=== PATIENT | male | born 1950 | race Caucasian/White ===

== ENCOUNTER → 2023-08-14 08:10 | Outpatient (POV) | payer MEDICARE, SELFPAY ==
[2023-08-14 08:48] VITALS: BP 136/89; PULSE 64; RESP 18; O2SAT 96; BMI 26.6
--- NOTE | 2023-08-14 09:47 | A.OFFVIS_ITS ---
HPI Data of Consult Patient: new to practice Consult date: 08/14/23 Requesting Physician: Yessi Benítez APRN Consult Narrative Reason for consult: Low back pain, leg pain History of present illness: Mr. Nixon is a 73 year old male who presents today as a new patient. He is a referral from the [facility]. Patient was being seen at this office for degenerative disc disease of lumbar spine with lumbar radiculopathy symptoms. Patient rates his pain today a 2 out of 10 however states right now it is doing well and he has not been up moving around as much. Patient states that when he does increase his activity the symptoms do get worse as the day goes on. Patient states he cannot tolerate prolonged walking due to his worsening symptoms. He states that he frequently has to stop and take multiple breaks. Patient does also state that he frequently feels like he is having to lean over and that his posture is poor. He states that he has had this pain going on for longer than 2 years unrelated to any specific trauma or injury. 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 He does describe this as a dull aching sensation with numbness and tingling into his legs. Patient states he is perfectly fine when he is sitting however the issue is when he gets up and ambulates. Patient has tried [id number] Tylenol and ibuprofen along with heat and ice and topicals with minimal relief. Patient did just complete 7 to 8 weeks of physical therapy back in March/April 2023 with no additional improvement. Patient does continue to do at home exercising and stretching however it is not making any difference. Patient did recently have a lumbar epidural however he states that he felt good initially coming up off the table but the effects were very short-term if lasting even more than the day or so. Patient states he has had recent imaging updates. He also states that he has been rather frustrated with trying to get in at the [place] location and that it took a while to even get to be seen and then has taken longer to get into rev iew over the epidural. His Harley has been reviewed and is appropriate. CC: Yessi Benítez APRN [facility] Disclaimer: The information contained in this section may have been updated after the patient was seen, as this information can be updated by other users. Medical History (Updated 08/14/23 @ 10:03 by Yessi Benítez APRN) HLD (hyperlipidemia) HTN (hypertension) Kidney stones Surgical History (Updated 08/14/23 @ 08:51 by Summer Arce RN) Surgical history unknown Family History (Updated 08/14/23 @ 08:49 by Summer Arce RN) Other Unknown family medical history Social History (Updated 08/14/23 @ 08:53 by Summer Arce RN) Smoking Status: Current every day smoker alcohol intake: never current occupational status: retired Travel in the last 8 weeks: None Review of Systems Review of Systems Review of systems:: pertinent systems reviewed and negative unless documented below Review of systems (narrative): Review of Systems: General: No recent weight changes, no fever, no sleep disturbances Respiratory: No cough, no shortness of air, no recurring pulmonary infections Cardiovascular/peripheral vascular: No chest pain, no palpitations, no edema, no shortness of breath Gastrointestinal: No new onset incontinence, normal bowel movements reported Genitourinary: No new onset incontinence Musculoskeletal: Low back pain, bilateral leg pain Psychiatric: [Normal mood/affect] Neurological: [Denies weakness in extremities], [denies balance issues] Meds Home Medications and Allergies Home Medications Medication Instructions Recorded Confirmed Type atorvastatin 10 mg tablet 10 mg PO DAILY Cholesterol 08/14/23 08/14/23 History lithium carbonate 450 mg 450 mg PO DAILY . 08/14/23 08/14/23 History tablet,extended release propranolol 40 mg tablet 40 mg PO BID BLOOD PRESSURE 08/14/23 08/14/23 History New Prescriptions to Start Prescriptions: Allergies Allergy/AdvReac Type Severity Reaction Status Date / Time No Known Allergies Allergy Verified 08/14/23 09:11 Objective Vital signs: Pulse Resp BP Pulse Ox O2 Del Method 64 18 136/89 96 Room Air 08/14/23 08:48 08/14/23 08:48 08/14/23 08:48 08/14/23 08:48 08/14/23 08:48 Narrative: Physical Exam: General: Alert and oriented x3, no acute distress, pleasant and cooperative Lungs: Respirations even and unlabored, symmetrical chest expansion Eyes: PERRL Musculoskeletal: Flexion and extension of lumbar [spine] somewhat guarded secondary to pain, [antalgic gait noted] positive shopping cart sign Neurological: Speech clear, no gross sensory deficit Additional findings Additional findings: MRI lumbar spine without contrast 01/21/2023 Findings: Benign 3.3 cm cyst lower pole left kidney. Paraspinal soft tissues are otherwise grossly unremarkable. There is prominent loss of the lumbar lordosis. Marrow signal generally age-appropriate. Distal cord and conus medullaris have a grossly normal appearance with the tip of the conus at the level of L1. T11-12: Tiny right paracentral disc protrusion without significant spinal stenosis foramina patent T12-L1: Minimal disc bulge without spinal stenosis. Foramen patent L1-2: Moderate degenerative narrowing of the disc with mild circumferential bulge. Nominal canal narrowing without spinal stenosis L2-3: Advanced degenerative narrowing of the disc with desiccation. Moderate circumferential disc bulge flattening the thecal sac. Mild hypertrophic ligament and facet changes. Mild spinal stenosis to 9 mm. Mild bilateral foraminal stenosis bilateral bulging disc. L3-4: Mild degenerative narrowing of the disc with desiccation mild circumferential disc bulge extending slightly above and below the level of the disc space. Mild hypertrophic ligament and facet changes slightly contouring the thecal sac. Trace effusion of the facet joints without synovial cyst. Mild spinal stenosis to 9 mm. Mild bilateral foraminal stenosis L4-L5: Degenerative narrowing of the disc with desiccation. Moderate circumferential disc bulge partially overlaid by endplate spur. Mild to moderate hypertrophic ligament and facet changes contouring the thecal sac. These factors combined to produce mild spinal stenosis to 8 mm. Mild left foraminal stenosis L5-S1: Severe degeneration of the disc with complete loss of disc height. There is a grade 1 retrolisthesis of L2-5. Prominent type II degenerative endplate changes with circumferential endplate spurring. Moderate hypertrophic ligament and facet changes. Factors combined to produce mild spinal stenosis. Disc margin approximates the S1 nerve roots without displacement. Severe bilateral foraminal stenosis by endplate osteophyte/disc complex Assessment and Plan *Assessment and plan (1) Degenerative disc disease, lumbar: Status: Acute Category: Medical Code(s): M51.36 - Other intervertebral disc degeneration, lumbar region (2) Lumbar radiculopathy: Status: Acute Category: Medical Code(s): M54.16 - Radiculopathy, lumbar region (3) Spinal stenosis, lumbar region with neurogenic claudication: Status: Acute Category: Medical Code(s): M48.062 - Spinal stenosis, lumbar region with neurogenic claudication (4) Chronic pain syndrome: Status: Acute Category: Medical Code(s): G89.4 - Chronic pain syndrome Plan Patient is experiencing significant pain in his overall low back and legs with decreased ability to ambulate. Patient had limited range of motion of his lumbar spine along with a positive shopping cart sign during today's visit with symptoms consistent of neurogenic claudication. I have discussed with the patient that he may be a beneficial candidate for a minimally invasive lumbar decompression. Risk and benefits were discussed with the patient and educational handouts were given to him at today's visit. Patient would like to proceed forward with this plan of care. Patient has tried and failed conservative therapy such as oral medication, heat and ice, topicals, physical therapy, at home stretching exercise for longer than 6 weeks. I have counseled patient that we will first order a lumbar epidural with epidurogram to see if he is a beneficial candidate of the mild procedure. Patient is agreeable to this plan of care. Patient is not on any blood thinners. Patient will be scheduled for lumbar epidural with epidurogram L4-L5. Patient has been instructed to contact the clinic with any concerns before the next appointment. Dr. Collado has reviewed this note and agrees with this plan of care. This note was dictated using voice recognition software and make contain errors or omissions.
== END ==
LOC: SC.PAIN 08:12
PROVIDERS: Visit Provider Nurse Practitioner Family
DX: M48.062 Spinal stenosis, lumbar region with neurogenic claudication; G89.4 Chronic pain syndrome; M51.16 Intervertebral disc disorders with radiculopathy, lumbar region
CPT/HCPCS: 99202; G0463

== ENCOUNTER 2023-10-09 06:03 | Day surgery (SDC) | payer MEDICARE, SELFPAY ==
[2023-09-28 09:59] VITALS: BMI 25.8
[2023-10-09 06:26] VITALS: BP 143/86; PULSE 81; RESP 18; TEMP 36.8; O2SAT 98
[2023-10-09] MEDS: LACTATED RINGERS 1000ML 1,000 ML 25 ML IV (06:33)
[2023-10-09 06:54] LABS: Basophils # 0.1 K/mm3 (0-0.2); Basophils % 0.7 % (0.1-2.0); Eosinophils # 0.1 K/mm3 (0.0-0.4); Eosinophils % 1.2 % (0.1-12.0); Hematocrit 48.9 % (42.0-52.0); Hemoglobin 16.1 g/dL (14.1-18.0); Lymphocytes # 2.3 K/mm3 (0.7-4.5); Lymphocytes % 21.2 % (10-50); Mean Corpuscular Hemoglobin 31.7 pg (27.0-31.2); Mean Corpuscular Volume 96.1 fl (80-94); Mean Platelet Volume 9.6 fl (7.4-10.4); Monocytes # 0.4 K/mm3 (0.1-1.0); Monocytes % 3.9 % (1.7-9.3); Neutrophils # 7.8 K/mm3 (1.8-7.8); Platelet Count 229 K/mm3 (142-424); Red Blood Count 5.09 M/mm3 (4.60-6.20); Red Cell Distribution Width 13.2 % (11.5-17.5); White Blood Count 10.6 K/mm3 (4.8-10.8)
[2023-10-09] MEDS: VANCOMYCIN/WATER FOR INJ (PEG) 1.25 GM/250 ML PIGGYBACK IV ×2 (07:02→08:53)
[2023-10-09 07:04] LABS: Chloride 109 mmol/L (98-107)
[2023-10-09 07:05] LABS: Potassium 5.1 mmoL/L (3.5-5.1); Sodium 138 mmol/L (136-145)
[2023-10-09 07:08] LABS: Anion Gap 9.1 mEq/L (5-15); Blood Urea Nitrogen 17 mg/dl (9-20); Calcium 9.6 mg/dl (8.4-10.2); Carbon Dioxide 25 mmol/L (22.0-30.0); Creatinine Clearance Estimated 70 mL/min (50-200); Estimated Glomerular Filt Rate 95 ml/min (>60); GFR (African American) 115 ML/MIN (>60); Glucose 111 mg/dl (74-100)
--- NOTE | 2023-10-09 07:39 | P.PNANES_ITS ---
[facility] Disclaimer: The information contained in this section may have been updated after the patient was seen, as this information can be updated by other users. Medical History HTN (hypertension) Kidney stones HLD (hyperlipidemia) Surgical History H/O ureteroscopy Family History Other Family history of heart disease Unknown family medical history Social History Smoking Status: Current every day smoker alcohol intake: never substance use type: denies use current occupational status: retired Travel in the last 8 weeks: None [facility] Anesthesia Checklist Patient Identification Patient Identification: Arm Band and Verbal (Name & ) Structural Data Admitted From: Home Planned Operative Procedure/s: Lumbar decompression Consent for Planned Operative Procedure(s) Verified: Yes NPO Status Verified Time NPO: 00:00 Additional verifications Anesthesia Reactions: No Hx Blood Transfusions: No Airway Assessment Mallampati Score:: Class III C-Spine Mobility Assessed: Yes TMJ Mobility Assessed: Yes Dentition: Good Dentition Neurological Assessment Level of Consciousness: Awake Hx Seizures: No Numbness or tingling in extremities: No Anesthesia Plan Anesthesia Risk discussed: Yes Anesthesia Plan: Verified ASA Class: II Anesthesia Type: MAC
[2023-10-09] MEDS: LIDOCAINE 1% W/EPI 1:100,000 20ML VIAL 40 ML (08:12)
[2023-10-09 08:32] VITALS: TEMP 43
[2023-10-09] MEDS: methylPREDNISolone ACETATE 80MG/ML VIAL 80 MG (08:32)
[2023-10-09 09:00] VITALS: BP 134/74; PULSE 85; RESP 17; TEMP 36.4; O2SAT 95
[2023-10-09] MEDS: IOPAMIDOL-200 (41%);10ML VIAL 10 ML IV (09:00)
[2023-10-09 09:10] VITALS: BP 128/54; PULSE 87; RESP 18; O2SAT 95
[2023-10-09 09:20] VITALS: BP 139/82; PULSE 81; RESP 16; O2SAT 93
--- NOTE | 2023-10-09 09:21 | EXP.OP.NOTE ---
Date of procedure: 10/09/23 Pre-op Diagnosis:: Degenerative disc disease of lumbar spine with lumbar spinal stenosis and neurogenic claudication symptoms Post-op Diagnosis:: Same Procedure performed:: Minimally invasive lumbar decompression bilateral L3-L4 and L4-L5 Surgeon:: Ghulam Collado MD [employer]LOORWORK[employer] DISTRIBUTOR:: Bi Yoon Anesthesia: MAC Estimated blood loss (mL): 1 Clinical Note:: The patient is a pleasant 73-year-old white male who is a patient from our [place] office. He has degenerative disc disease of lumbar spine with lumbar spinal stenosis with ligamentum flavum hypertrophy and neurogenic claudication symptoms. This is evident on MRI and his last epidurogram. He got short-term relief from his last epidural. He presents for minimally invasive lumbar decompression bilateral L4-L5 today. We will also look at other levels of stenosis and plan on decompressing those levels as well if needed. Operative findings:: None Operative note:: Informed consent was obtained and the risk and benefits of the procedure was explained to the patient. The patient was taken to the operating room and placed prone on the procedure table. The patient was prepped and draped in sterile fashion. C-arm fluoroscopy was used to view the lumbar spine. The skin and subcutaneous tissues were anesthetized using lidocaine. A epidural needle was inserted and advanced into the L3-L4 interspace. After confirmation of needle placement in the epidural space, dye was injected in a contralateral oblique view. There was an epidurogram seen at L3-L4 and L4-L5. Significant stenosis was seen at L3-L4 and L4-L5. The skin and subcutaneous tissues again were anesthetized using lidocaine. An incision was made and a access trocar was inserted and advanced to contact at the superior aspect of the L4 lamina on the left side. And a contralateral oblique view the side was viewed. Using a bone rongeur and tissue sculptor we debulked bone from the L3-L4 and L4-L5 interspace on the left side. We then used the tissue sculptor to debulk ligament at the L3-L4 and L4-L5 interspace on the left side. We then moved over to the right side and debulked bone and ligament from L3-L4 and L4-L5 on the right side. There is opening of the stenosis at L3-L4 and L4-L5 bilaterally. The access trocar was removed. A total of 3 mL's of dye was used. There is good spread of dye above and below this level as well. We injected 80 mg Depo-Medrol through the epidural needle. The epidural needle was removed and dressings were placed. This encounter for exam is for normal comparison and control in a clinical research program Patient was taken to recovery in stable condition. Patient was discharged home neurologically intact and with good relief of pain symptoms. Plan and disposition: We will follow-up with this patient in 2 weeks. Will reevaluate symptoms at that time. Condition: stable Disposition: PACU Complications:: None
[2023-10-09 09:30] VITALS: BP 150/70; PULSE 83; RESP 16; TEMP 36.6; O2SAT 97
== END 2023-10-09 09:45 | disposition home or self-care (01) ==
PROVIDERS: Visit Provider Anesthesiology
PROC: (CPT 0275T; principal; 2023-10-09 07:30)
DX: M48.062 Spinal stenosis, lumbar region with neurogenic claudication; Z00.6 Encounter for examination for normal comparison and control in clinical research program
CPT/HCPCS: 0275T; 80048; 85025; 96374; C1889; J1010; Q9966